=== PATIENT | female | born 1955 | race Caucasian/White ===

== ENCOUNTER 2016-09-18 20:26 | Observation (INO) | payer MEDICARE ==
--- NOTE | ~2016-09-18 | EKG ---
PATIENT: COURTNEY SCHROEDER UNIT #: [id number] Ventricular Rate: 99 BPM Atrial Rate: 99 BPM P-R Interval: 144 ms QRS Duration: 74 ms Q-T Interval: 344 ms QTC Calculation(Bezet): 441 ms P Manderson: 52 degrees Calculated R Manderson: -61 degrees Calculated T Manderson: 58 degrees Diagnosis Line: Normal sinus rhythm Diagnosis Line: Left axis deviation Diagnosis Line: Abnormal ECG Diagnosis Line: Diagnosis Line: Confirmed by VIKY TREVINO MD ([id number]) on Diagnosis Line: 09/19/2016 4:12:33 PM INTERPRETING MD: URIEL SIMMONS
--- NOTE | ~2016-09-18 | OR ---
Unit #: [id number] #: [id number] Patient: COURTNEY SCHROEDER [id number] [address] [place], [place] [address] [id number] I MR#: [id number] NAME: COURTNEY SCHROEDER. ROOM: 564 Date of Procedure: 09/20/2016 Admission Date: 09/19/2016 Surgeon: Jung Dunn M.D. : 1955 Attending Physician: Karolina Ojeda M.D. [facility] OPERATIVE REPORT PREOPERATIVE DIAGNOSIS Noncardiac chest pain. PROCEDURES PERFORMED Upper gastrointestinal endoscopy and biopsy. POSTOPERATIVE DIAGNOSES The patient had mild distal erosive esophagitis and mild antral gastritis, otherwise examination normal up to third part of the duodenum. Biopsies obtained from the antrum for CLOtest. In addition, biopsies also obtained from the the deep descending duodenal folds and sent for histology. RECOMMENDATIONS The patient will continue on pantoprazole once a day. It is unclear whether the symptomatology is due to acid reflux as symptoms are fairly consistent with tenderness in the substernal area and might be musculoskeletal pain, thus causing the symptoms. The patient can follow up with me in the office in 10 to 12 weeks' time. She can be discharged home from GI standpoint. SEDATION USED MAC. DESCRIPTION OF PROCEDURE Following detailed explanation of potential risks and complications of an upper endoscopy namely perforation, bleeding, and complications related to sedation, the patient was brought to GI lab and laid in the left lateral decubitus position. Lubricated tip of the Olympus video upper endoscope was passed through bite block into the proximal esophagus under direct vision. The entire esophageal mucosa was examined. The patient was noted to have grade 1 distal erosive esophagitis with erosions in the distal esophagus ascending above the Z-line. The scope was then advanced into the gastric cavity and the latter was insufflated. Mucosa of the fundus, body, and antrum was examined and the patient was noted to have mild diffuse prepyloric antral gastritis. Pylorus was intubated with visualization of the normal duodenal bulb and second and third part of the duodenum. Upon withdrawal and retroflexion, incisura, cardia, and greater curve examined and a biopsy obtained from the antrum for CLOtest. The scope was then withdrawn in the distal esophagus. The entire esophageal mucosa was examined all the way up to pharynx. No additional findings noted. The patient tolerated the procedure without any postprocedure complications. Unit #: [id number] #: [id number] Patient: COURTNEY SCHROEDER Dictated by..Rudy Garcia/agatha TD: 09/21/2016 00:20 JOB #: [id number] OPERATIVE REPORT X Jung Dunn MD X PROCEDURE OPERATIVE NOTE
--- NOTE | ~2016-09-18 | DS ---
Unit #: [id number] #: [id number] Patient: COURTNEY SCHROEDER [id number] [address] [address] [id number] I MR#: [id number] NAME: COURTNEY SCHROEDER. ROOM: 564 Age: 60 Sex: F Admission Date: 09/19/2016 : 1955 Discharge Date: 09/21/2016 Attending Physician: Karolina Ojeda M.D. Primary Care Physician: [facility] DISCHARGE SUMMARY ADMITTING DIAGNOSES 1. Chest pain. 2. Coronary artery disease with history of RCA stent. 3. Hypertension. 4. Dyslipidemia. 5. COPD. 6. Tobacco use. DISCHARGE DIAGNOSES 1. Chest pain, noncardiac; likely musculoskeletal. 2. Coronary artery disease with history of right coronary artery stent. 3. Hypertension. 4. Dyslipidemia. 5. Chronic obstructive pulmonary disease. 6. Tobacco use. 7. Mild gastritis and esophagitis per esophagogastroduodenoscopy on 09/20/2016. DIAGNOSTIC STUDIES CARDIOVASCULAR: Two-D echo on 09/19/2016 showed an ejection fraction of 55%. There was mild concentric LVH. On 09/19/2016 the patient had a Lexiscan Cardiolite, which was negative for ischemia. IMAGING: On 09/20/2016 the patient had a rib x-ray, which showed no fracture. The bones are normally mineralized. There was no pneumothorax. She had a CT PE protocol of the chest on 09/18/2016, which showed no pulmonary embolism or aortic dissection. The lungs are clear except for some mild bilateral dependent atelectasis. There was circumferential wall thickening of the esophagus, which may reflect a mild degree of esophagitis. PROCEDURES PERFORMED On 09/20/2016 the patient had an EGD with Dr. Dunn, which showed mild gastritis and mild esophagitis. HOSPITAL COURSE The patient is a 60-year-old female with history of coronary artery disease and RCA stent in July of 2015. The patient denies following up with a rn palliative since that time and also denied taking Plavix, Effient or Brilinta. The patient came to the emergency department with complaints of chest pain on 09/19/2016. Serial troponins were Unit #: [id number] #: [id number] Patient: COURTNEY SCHROEDER negative. Lexiscan Cardiolite, two-D echo were both performed showing no significant abnormalities. The patient continued to have pain. The patient had a CTA, which did show some esophagitis, and GI was consulted. The EGD results are above. The patient was placed on daily Protonix; however, it is felt, due to the mild degree of esophagitis and gastritis, that this is likely not the cause of her chest pain. The patient did seem to have more tenderness than she did at presentation. A rib x-ray showed no fracture or abnormalities either. This is likely musculoskeletal or costochondritis. At the time of discharge the patient still reports pain and is requesting a pain medication. She was found leaving the floor yesterday afternoon and had gone down to smoke. PHYSICAL EXAMINATION AT TIME OF DISCHARGE VITAL SIGNS: Blood pressure is 128/68, heart rate 59 and regular, respirations 16 and regular, temperature 97.6, O2 sat 98% on room air. GENERAL: The patient is a well-developed, well-nourished female in no acute distress. Awake, oriented x3. SKIN: No rashes or hives. CARDIAC: Regular rate and rhythm without murmur, gallop, rub or lift. PULMONARY: Clear to auscultation bilaterally with rhonchi. No wheezes or rales. ABDOMEN: Soft, nontender, nondistended. Positive bowel sounds x4. The abdominal pulsation is not enlarged. EXTREMITIES: No clubbing, cyanosis or edema. DISCHARGE MEDICATIONS 1. Neurontin 800 mg t.i.d. 2. Glucophage 1,000 mg b.i.d. 3. Norvasc 10 mg daily. 4. Lipitor 40 mg q.h.s. 5. Aspirin 81 mg daily. 6. Protonix 40 mg daily. 7. Mucinex OTC p.r.n. DISCHARGE PLAN/INSTRUCTIONS 1. Ms. Schroeder will be discharged home after evaluated by Dr. Javid Lisa. 2. She was encouraged to stop smoking. 3. She was advised to follow up with her primary care physician, Dr. Whitley, for other causes of noncardiac chest pain. 4. She will follow up with Dr. Lisa in 3-4 weeks. Dictated by... Jyothi Muhammad, P.Vin Lisa M.D. CMG/abimbola TD: 09/21/2016 10:14 JOB #: [id number] Unit #: [id number] #: [id number] Patient: COURTNEY SCHROEDER DISCHARGE SUMMARY X X DISCHARGE SUMMARY
--- NOTE | ~2016-09-18 | CO ---
Unit #: [id number] #: [id number] Patient: COURTNEY SCHROEDER [id number] [address] [place], [place] [address] [id number] I MR#: [id number] NAME: COURTNEY SCHROEDER. ROOM: 564 Age: 60 Sex: F Admission Date: 09/19/2016 : 1955 Attending Physician: Karolina Ojeda M.D. Primary Care Physician: [facility] Doug Consultation Date: 09/19/2016 CONSULTATION REPORT REASON FOR CONSULTATION Noncardiac chest pain. HISTORY OF PRESENT ILLNESS Ms. Schroeder is a 60-year-old white female. The patient presented with a history of pain in the left parasternal area and mammary area, which is sharp and continuous. The pain continued after the patient was admitted and she says after admission, her pain has lessened, but it is still present. In addition, she also mentioned some tenderness in the same area. There is no history of shortness of breath or syncope. She also denies any history of retrosternal ascending heartburn or postprandial dyspepsia and very rarely gets heartburn. The pain is not particularly related to effort nor to meals. She was given nitroglycerin without much help except for produced headache. She also has some nausea, but no vomiting. The patient also had a similar episode, was admitted to [facility], and it is not clear whether she had any cardiac evaluation there. PAST MEDICAL HISTORY Significant for history of hypertension, type 2 diabetes, hyperlipidemia, and COPD. In addition, she has coronary artery disease in July earlier this year. She had a normal left anterior descending and left main coronary, but 80% stenosis of the right branch of large RV marginal branch and left circumflex also normal. SOCIAL HISTORY Smokes a pack of cigarettes daily and has more than 40 pack-year history of smoking. Does not drink alcohol. She is currently retired. FAMILY HISTORY Significant for OR, but none of colon, pancreatic cancer, or liver disease. MEDICATIONS Include metformin, Neurontin, lovastatin, Norvasc, and Lyrica. ALLERGIES She has no known drug allergies. REVIEW OF SYSTEMS Detailed review of organ systems does not reveal any recent weight loss. No history of fever, chills, or rigors. No history of headache, seizures, or syncope. No history of cough, expectoration, or hemoptysis. No history of dysuria, hematuria, or pyuria. No history of focal seizures or extremity weakness. No history of skin rash, aphthous ulcer in mouth, or reactive arthritis. Unit #: [id number] #: [id number] Patient: COURTNEY SCHROEDER PHYSICAL EXAMINATION GENERAL: She is alert and oriented, appears comfortable. VITAL SIGNS: Stable with a temperature of 98.5, pulse 75 per minute and regular, respirations 24, and blood pressure 126/67. She weighs 185 pounds, appears overweight. Her baseline weight in the past has been about 200 pounds. HEAD AND NECK: She has no pallor, icterus, lymphadenopathy, or peripheral edema. CARDIOVASCULAR: Normal heart sounds. No murmurs on auscultation. LUNGS: Reveal normal breath sounds. Good air entry. ABDOMEN: Soft and nontender. Liver and spleen are not palpable. Bowel sounds normal. DIAGNOSTIC STUDIES LABORATORY RESULTS: Shows a white count of 11,000 with no left shift, hemoglobin is 12.9 with normochromic normocytic red cell indices, and platelet count is 297 and normal. INR is 1.0. Serum chemistry shows a normal BUN and creatinine and electrolytes. Normal LFTs. Blood glucose is 117. Cardiac enzymes are normal. CLINICAL IMPRESSION The patient was seen by Dr. Ojeda and it is felt that her pain is noncardiac. I also do not have any clues in terms of reflux-related symptoms. The patient is indeed tender over the left sternal area and this could be muscular pain. She denies any history of depression or anxiety. A diagnostic upper endoscopy is warranted and be scheduled for tomorrow. The pros and cons of procedure, potential risks, and complications were discussed with the patient and she was reassured. Thank you for asking me to see this pleasant woman. I appreciate the consult. Dictated by... Rudy Taylor TD: 09/20/2016 19:28 JOB #: [id number] CC: Karolina Ojeda M.D. [facility]. CONSULTATION REPORT X Jung Dunn MD CONSULTATION REPORT
--- NOTE | ~2016-09-18 | HP ---
Unit #: [id number] #: [id number] Patient: COURTNEY SCHROEDER [id number] [address] [place], [place] [address] [id number] I MR#: [id number] NAME: COURTNEY SCHROEDER. ROOM: 564 Age: 60 Sex: F Admission Date: 09/19/2016 : 1955 Attending Physician: Karolina Ojeda M.D. [facility] HISTORY AND PHYSICAL PRIMARY CARE PHYSICIAN None. CHIEF COMPLAINT Chest pain. HISTORY OF PRESENT ILLNESS The patient is a 60-year-old female with history of coronary artery disease and RCA stent placement on August 02, 2015, hypertension, diabetes mellitus, COPD and tobacco use, who presented to the emergency department with chest pain. She states the chest pain started around 5 p.m. yesterday when she was sitting down. The chest pain is on the left side and described as a sharp chest pain. She states this is different than what she experienced prior to her stent placement and that this pain is worse. There is some increase in the pain with inspiration but no change with movement. She says that the pain has been continuous overnight. It is better now and 8/10 on the pain scale but was worse at presentation. She received nitroglycerin which did not help the chest pain much but did produce a headache. She denies shortness of breath but states that it is "hard to breathe." She has had some nausea but no vomiting and no diaphoresis. The patient also had an episode of chest pain in May where she went to [facility]. She does not recall if she had a stress test at that time. She believes that she did and was reportedly normal. The patient had a 2D echo Doppler on August 01, 2013 which showed an ejection fraction of 60%, mild concentric LVH, trace MR. PAST MEDICAL HISTORY 1. Coronary artery disease with left heart catheterization, August 02, 2015, showing an ejection fraction of 60%. The left main was normal. The LAD was normal. The RCA had an 80% stenosis at the branching of a large RV marginal branch which was treated with a PROMUS Element stent. Left circumflex was normal. The left heart catheterization was complicated by a pseudoaneurysm which was treated with a thrombin injection. Dr. Bone performed the left heart catheterization. The patient denies any followup since the left heart catheterization. She also denies taking any medications such as Plavix, Effient, or Brilinta. 2. Hypertension. 3. Diabetes mellitus. 4. Dyslipidemia. 5. COPD. SOCIAL HISTORY She smokes one pack daily. She denies alcohol use or illicit drug use. 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 FAMILY HISTORY She has had paternal aunts and uncles who have had MIs but none under the age of 60. REVIEW OF SYSTEMS GENERAL: Denies fevers, chills, or flu-like symptoms. HEENT: Headache following nitroglycerin. Denies epistaxis or dysphagia. NECK: Denies swollen glands. PULMONARY: She has had a mild cough with some production. CARDIAC: As above. No orthopnea or PND, palpitations or tachycardia. ABDOMEN: Nausea as above. No vomiting or melena. GENITOURINARY: No hematuria. EXTREMITIES: No swelling. NEUROLOGIC: No dizziness or syncope. DIAGNOSTIC STUDIES LABORATORY: Troponin was less than 0.05 at 2313 and less than 0.05 at 2045. D-dimer was 693. Sodium 137, potassium 3.9, chloride 110, CO2 of 24, glucose 117, BUN 15, creatinine 0.6. AST 22, ALT 17. PT 10.1, INR 1. White blood cell 11.1, hemoglobin 12.9, hematocrit 39.1, platelets 297,000. IMAGING: Chest x-ray showed no acute cardiopulmonary findings. CT of the chest was performed and was reportedly negative for PE. CARDIOVASCULAR: EKG: Normal sinus rhythm with left axis deviation. PHYSICAL EXAMINATION VITAL SIGNS: Blood pressure is 141/69, heart rate 72 and regular, respirations 14 and regular, temperature 98. GENERAL: The patient is well-developed, well-nourished female in no acute distress. Awake, oriented x3. SKIN: No rashes or hives. HEENT: Head is normocephalic and atraumatic. There are no xanthelasmas. Oral mucosa is pink and moist. NECK: No JVD or carotid bruits. SPINE: No kyphosis or scoliosis. CHEST: Clear to auscultation bilaterally without wheezes, rhonchi, (1) . CORONARY: Regular rate and rhythm without murmur, gallop, rub, or lift. ABDOMEN: Soft, nontender, nondistended. Positive bowel sounds x4. The abdominal aorta is not enlarged. EXTREMITIES: No clubbing, cyanosis, or edema. NEUROLOGIC: Awake, oriented x3. ASSESSMENT AND PLAN 1. Chest pain. 2. Coronary artery disease with history of right coronary artery stent. 3. Hypertension. 4. Diabetes mellitus. 5. Dyslipidemia. 6. Chronic obstructive pulmonary disease. 7. Tobacco use. Ms. Schroeder's case was discussed with Dr. Boris Robison. We will Unit #: [id number] #: [id number] Patient: COURTNEY SCHROEDER repeat one more troponin. If this is negative, we will proceed with a Lexiscan Cardiolite and further recommendations will follow the completion of this test. Dictated by Jyothi Muhammad P.A.C. for Rudy Mcdonough TD: 09/19/2016 10:43 JOB #: [id number] HISTORY AND PHYSICAL X X HISTORY AND PHYSICAL
--- NOTE | ~2016-09-18 | TH ---
Unit #: [id number] #: [id number] Patient: COURTNEY SCHROEDER [id number] [address] [address] [id number] I MR#: [id number] NAME: COURTNEY SCHROEDER. : 1955 SEX: F STUDY DATE/TIME: 09/19/2016 UNIT: [facility] ROOM: 564 STUDY DESCRIPTION: Cardiolite study Attending Physician: Karolina Ojeda M.D. Primary Care Physician: [facility] CARDIOLOGY REPORT EXAM Cardiolite study. TECHNIQUE This 60-year-old patient received 0.4 mg of Lexiscan intravenously followed by 30.9 mCi of technetium 99 Cardiolite and images were obtained according to the standard SPECT protocol. For rest images, 10.24 mCi of Cardiolite was injected. Images were reviewed in both phases. FINDINGS Overall study quality is excellent. LV cavity size is normal. In both images, there is no lung activity. RV is normal. Rotating raw data showed no significant artifact, soft tissue attenuation, or GI uptake. Review of the SPECT images showed a normal homogeneous radiotracer concentration throughout the myocardium in both the stress and rest images. Gated imaged showed a normal LV wall thickening and wall motion with an estimated LV ejection fraction 82%. IMPRESSION Myocardial perfusion imaging is normal. No evidence of ischemia or infarct. Normal LV dimensions. Normal systolic LV function with an estimated LV ejection fraction 82%. Dictated by... Rudy Guan/brody TD: 09/20/2016 06:38 JOB #: [id number] CARDIOLOGY REPORT X Karolina Ojeda MD CARDIOLOGY REPORT
--- NOTE | ~2016-09-18 | CT16 ---
[facility] A Service of [facility] RADIOLOGY TEXT RESULTS PATIENT: COURTNEY SCHROEDER LOCATION: [facility] 564-01 : 53 UNIT #: [id number] AGE: [address]: Karolina Ojeda MD SEX: F ORDER DR: [id number] [facility] [address] [facility]. [place], [place] [address] [id number] I MR#: [id number] Acc #: [id number] NAME: COURTNEY SCHROEDER. : 1955 SEX: F STUDY DATE/TIME: 09/18/2016 UNIT: [facility] ROOM: [facility] STUDY DESCRIPTION: CT Angio Chest for PE Attending Physician: Karolina Ojeda M.D. Ordering Physician: Arsen Meadows D.O. Primary Care Physician: [facility] IMAGING REPORT This report is preliminary unless electronic signature is present EXAM Chest CTA 09/18 at 23:18 INDICATIONS Left side chest pain that started at 5 o'clock this afternoon. Shortness of air as well. Pain rates 10 out of 10. Elevated D-dimer today. History of COPD. TECHNIQUE Axial images were obtained through the chest following IV contrast administration. 3-D reformats were obtained. Comparison made with 07/31/2015. The CT exam was performed with one or more of the following radiation dose reduction techniques: automatic exposure control, adjustment of mA and/or kV according to patient size, and iterative reconstruction. FINDINGS There is no pulmonary embolism or aortic dissection. There is atherosclerotic disease and coronary artery disease. There is no pleural or pericardial effusion. There is no adenopathy. There is dependent atelectasis in the lungs. The lungs are otherwise clear. Mild circumferential wall thickening of the esophagus may indicate esophagitis. The upper abdomen is remarkable for atherosclerotic disease. IMPRESSION 1. No pulmonary embolism or aortic dissection. 2. Lungs are clear except for some mild bilateral dependent atelectasis. 3. Circumferential wall thickening of the esophagus may reflect a mild degree of esophagitis. [facility] A Service of [facility] RADIOLOGY TEXT RESULTS PATIENT: COURTNEY SCHROEDER LOCATION: [facility] 564-01 : 53 UNIT #: [id number] AGE: [address]: Karolina Ojeda MD SEX: F ORDER DR: 4. Atherosclerotic disease and coronary artery disease. Dictated by... Lico Zaman Jr., M.D. THIS IS AN ELECTRONICALLY VERIFIED REPORT Lico Zaman Jr., M.D. at 09/19/2016 9:58 PM VIVI/debbi TD: 09/19/2016 10:26 JOB #: [id number] MEDICAL IMAGING REPORT COPY
--- NOTE | ~2016-09-18 | CR212 ---
[facility] A Service of [facility] RADIOLOGY TEXT RESULTS PATIENT: COURTNEY SCHROEDER LOCATION: [facility] 564-01 : 53 UNIT #: [id number] AGE: [address]: Karolina Ojeda MD SEX: F ORDER DR: [id number] [facility] [address] [place], [place] [address] [id number] I MR#: [id number] Acc #: [id number] NAME: COURTNEY SCHROEDER : 1955 SEX: F STUDY DATE/TIME: 09/20/2016 18:06 UNIT: [facility] ROOM: [facility] STUDY DESCRIPTION: CR Ribs Unilateral 2 View Lt Attending Physician: Karolina Ojeda M.D. Ordering Physician: Margarito Lainez Primary Care Physician: [facility], MEDICAL IMAGING REPORT This report is preliminary unless electronic signature is present EXAM Left ribs, 3 views, 09/20/2016 HISTORY Left side chest and rib pain anteriorly for 1 day with cough. FINDINGS 3 views of the left ribs demonstrate no fracture. The bones are normally mineralized. There is no pneumothorax. IMPRESSION Negative left ribs. Dictated by... Neslon Garrido M.D. THIS IS AN ELECTRONICALLY VERIFIED REPORT Nelson Garrido M.D. at 09/21/2016 2:17 PM KRT/psc TD: 09/21/2016 02:31 JOB #: [id number] MEDICAL IMAGING REPORT COPY
--- NOTE | ~2016-09-18 | ST ---
Unit #: [id number] #: [id number] Patient: COURTNEY SCHROEDER [id number] [address] [address] [id number] I MR#: [id number] NAME: COURTNEY SCHROEDER. : 1955 SEX: F STUDY DATE/TIME: 09/19/2016 UNIT: [facility] ROOM: 564 STUDY DESCRIPTION: Stress test. Attending Physician: Karolina Ojeda M.D. Primary Care Physician: [facility] CARDIOLOGY REPORT EXAM Stress test. FINDINGS Baseline EKG: Normal sinus rhythm. Incomplete right bundle branch block. Resting heart rate 75 per minute and blood pressure 140/83. This 60-year-old patient received 0.4 mg of Lexiscan intravenously. During the test, no ischemic changes noted. No arrhythmias noted. Blood pressure was stable. INTERPRETATION 1. Nondiagnostic EKG during Lexiscan. 2. No arrhythmias noted. 3. Stable blood pressure during the test. 4. Correlate with the Cardiolite study. Dictated by... Rudy Guan/brody TD: 09/20/2016 06:35 JOB #: [id number] CARDIOLOGY REPORT X Karolina Ojeda MD CARDIOLOGY REPORT
--- NOTE | ~2016-09-18 | CR72 ---
[facility] Service of [facility] & [facility] RADIOLOGY TEXT RESULTS PATIENT: COURTNEY SCHROEDER LOCATION: [facility] : 51 UNIT #: [id number] AGE: [address]: Karolina Ojeda MD SEX: F ORDER DR: [id number] [facility] [address] [place] [place], [place] [address] [id number] MR#: [id number] Acc #: [id number] NAME: COURTNEY SCHROEDER : 1955 SEX: F STUDY DATE/TIME: 09/18/2016 19:41 UNIT: CEDOF ROOM: [id number] STUDY DESCRIPTION: CR Chest Single View Portable Attending Physician: Karolina Ojeda M.D. Ordering Physician: Arsen Meadows D.O. Primary Care Physician: [facility] MEDICAL IMAGING REPORT This report is preliminary unless electronic signature is present EXAM AP portable chest. Date: 09/18/2016. HISTORY 60-year-old female with complaints of chest pain, shortness of breath since 09/18/2016. COMPARISON AP portable chest 03/03/2016. FINDINGS No acute airspace disease. Heart size is normal. No pleural effusion or pneumothorax. Degenerative changes of the right femoral head. IMPRESSION 1. No acute cardiopulmonary findings. Dictated by... Kendra Pulido M.D. THIS IS AN ELECTRONICALLY VERIFIED REPORT Kendra Pulido M.D. at 09/19/2016 2:09 PM LLH/gz TD: 09/19/2016 09:12 JOB #: [id number] MEDICAL IMAGING REPORT COPY
[~2016-09-18 20:26] MED LIST: ASPIRIN ENTERI325 M1 PO; ASPIRIN81 M2 PO; AUGMENTIN PO; BRILINTA90 MG PO; COREG3.125 MG PO; DITROPAN5 MG PO; FENOFIBRATE160 MG PO; FLAGYL PO; FLEXERIL10 MG PO; HYDROCODON-ACE1 EAC7 PO; KEFLEX PO; LEVAQUIN750 M1 PO; LISINOPRIL20 MG PO; LORTAB 10-5001 EACH PO; LORTAB 5/500 TA1 TA2 PO; LOVASTATIN20 MG PO; LYRICA100 MG PO; LYRICA75 MG PO; MEDROL PO; METFORMIN HCL500 M1 PO; METFORMIN PO; MUCINEX 600 MG; MULTI-DAY VITAM1 TAB PO; NATURAL VITA100 UNIT PO; NEURONTIN800 MG PO; NIASPAN1000 MG PO; NORVASC10 MG PO; NORVASC2.5 MG PO; OMEPRAZOLE20 M1 PO; PHENERGAN12.5 MG PO; ULTRAM PO; VICODIN 5/1 TAB 5/50 PO; ZOCOR20 MG PO; ZYVOX600 MG PO
[2016-09-18 20:45] LABS: BASOPHIL# 0.1 X10e3 (0-0.3); BASOPHIL% 1.2 % (0-2.5); EOSINOPHIL# 0.2 X10e3 (0-0.7); EOSINOPHIL% 1.5 % (0.0-7.0); HEMATOCRIT 39.1 % (35.0-45.0); HEMOGLOBIN 12.9 gm/dL (12.0-16.0); LYMPHOCYTE# 3.9 X10e3 (1.0-3.5); LYMPHOCYTE% 35.2 % (17.0-45.0); MEAN CELL VOLUME 84.9 FL (83-96); MEAN PLATELET VOLUME 7.6 FL (6.5-11.5); MONOCYTE# 0.7 X10e3 (0-1.0); MONOCYTE% 6.4 % (3.0-12.0); NEUTROPHIL# 6.2 X10e3 (1.5-7.1); NEUTROPHIL% 55.7 % (40-75); PLATELET COUNT 297 X10e3 (140-420); RED BLOOD COUNT 4.61 X10e (3.90-5.30); WHITE BLOOD COUNT 11.1 X10e3 (4.0-10.5)
[2016-09-18 20:47] LABS: POC - CKMB 2.8 ng/mL (0.0-7.9); POC - TROPONIN <0.05 ng/mL (<=0.05)
[2016-09-18 20:51] LABS: DIFF IND NO
[2016-09-18 21:05] LABS: PARTIAL THROMBOPLASTIN TIME 27.8 SECONDS (23.5-31.3); PROTHROMBIN TIME (PATIENT) 10.1 SECONDS (9.6-11.5)
[2016-09-18 21:07] LABS: ALBUMIN SERUM 3.9 g/dL (3.5-5.0); ALKALINE PHOSPHATASE 72 U/L (32-92); ALT (SGPT) 17 U/L (10-40); AST (SGOT) 22 U/L (10-42); BILIRUBIN, DIRECT 0.2 mg/dL (0.0-0.2); BILIRUBIN,INDIRECT 0.1 mg/dL (0.0-0.9); BILIRUBIN,TOTAL 0.3 mg/dL (0.2-2.0); BLOOD UREA NITROGEN 15 mg/dL (9-23); CALCIUM SERUM 8.7 mg/dL (8.4-10.2); CARBON DIOXIDE 24 mmol/L (22-31); CHLORIDE 110 mmol/L (100-111); CREATININE SERUM 0.6 mg/dL (0.6-1.4); GLOM FILT RATE Estimated ABOVE60 mL/min (>60); GLUCOSE FASTING 117 mg/dL (70-110); POTASSIUM 3.9 mmol/L (3.5-5.1); PROTEIN TOTAL SERUM 7.3 g/dL (6.0-8.3); SODIUM 137 mmol/L (135-145)
[2016-09-18 23:15] LABS: POC - CKMB 1.2 ng/mL (0.0-7.9); POC - TROPONIN <0.05 ng/mL (<=0.05)
[2016-09-19] MEDS ORDERED: NORVASC10 MG PO (00:29)
[2016-09-20 11:40] LABS: CHOLESTEROL 315 mg/dL (0-200); HDL CHOLESTEROL 42 mg/dL (35-95); TRIGLYCERIDES 508 mg/dL (10-160)
[2016-09-21] MEDS ORDERED: PROTONIX PO (10:38)
[2016-09-21] MEDS ORDERED: LIPITOR40 MG PO (10:38)
[2016-09-21] MEDS ORDERED: BAYER CHEWABLE81 MG PO (10:38)
== END 2016-09-21 12:48 | disposition home or self-care (01) ==
LOC: CED 20:26 → CEDOF 09-19 01:20 → C5C 09-19 09:38
PROVIDERS: Emergency Medicine; Physician Assistant Medical
DX: R07.89 Other chest pain (principal); I25.10 Atherosclerotic heart disease of native coronary artery without angina pectoris; K20.8 Other esophagitis; K29.70 Gastritis, unspecified, without bleeding; Z95.5 Presence of coronary angioplasty implant and graft; I10 Essential (primary) hypertension; E11.9 Type 2 diabetes mellitus without complications; Z23 Encounter for immunization; Z79.84 Long term (current) use of oral hypoglycemic drugs; E78.5 Hyperlipidemia, unspecified; J44.9 Chronic obstructive pulmonary disease, unspecified; F17.200 Nicotine dependence, unspecified, uncomplicated; J98.11 Atelectasis; Z82.49 Family history of ischemic heart disease and other diseases of the circulatory system
CPT/HCPCS: 36415; 71010; 71100; 71275; 78452; 80048; 80061; 80076; 82553; 82947; 83036; 84443; 84484; 85025; 85379; 85610; 85730; 87077; 88305; 90688; 93005; 93017; 93306; 96374; 96375; 96376; 99285; A9500; G0008; G0378; J1885; J2270; J2405; J2550; J2785; Q9967